=== PATIENT | female | born 1955 | race Caucasian/White ===

== ENCOUNTER 2018-08-31 14:39 | Emergency (ER) | payer MEDICARE, BC, SELFPAY ==
[2018-08-31 14:40] VITALS: BP 124/75; PULSE 80; RESP 19; TEMP 37.1; O2SAT 95; BMI 21.7
--- NOTE | 2018-08-31 15:26 | DI.RAD.S_ITS ---
PROCEDURE: XR CHEST 2V INDICATIONS: SHORTNESS OF BREATH AND COUGH. TECHNIQUE: 2 views of the chest were acquired. COMPARISON: [facility], , CHEST 2 VIEW, 04/18/2016, 11:55. FINDINGS: Surgical changes and devices: Thoracic spine neurostimulator lead noted. Cholecystectomy clips. Lungs and pleura: Lungs are clear. No pleural effusions or pneumothorax. Mediastinum: Mediastinal contours are normal. Heart size is normal. Bones and chest wall: No suspicious bony abnormalities. Soft tissues appear unremarkable. IMPRESSION: No acute cardiopulmonary disease process. Dictated by: Marce Gao MD, PhD on 08/31/2018 at 15:59 Approved by: Marce Gao MD, PhD on 08/31/2018 at 16:00
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
--- NOTE | 2018-08-31 16:35 | PC.NURSE ---
pt states, 8-9 days with cold sxs, the last 4 days with nasal congestions, chest pain with coughing only, admits still smoking. also with ear pain and body aches. reports, with spinal cord stimulator and takes oxycodone for pain, but it doesnt help head cold. dr english at [facility].
== END 2018-08-31 16:48 | disposition home or self-care (01) ==
PROVIDERS: Emergency Provider Emergency Medicine; PCP Family Medicine
DX: J06.9 Acute upper respiratory infection, unspecified (principal); R07.9 Chest pain, unspecified
CPT/HCPCS: 71046; 93005; 93010; 99282; 99284

== ENCOUNTER → 2019-08-17 11:40 | Outpatient (CLI) | payer MEDICARE, BC, SELFPAY ==
--- NOTE | 2019-08-17 11:48 | DI.RAD.S_ITS ---
PROCEDURE: XR CHEST 2V INDICATIONS: cough and fever; smoker TECHNIQUE: 2 views of the chest were acquired. COMPARISON: [facility], , CHEST 2 VIEW, 04/18/2016, 11:55. [facility], , XR CHEST 2V, 08/31/2018, 15:38. FINDINGS: Surgical changes and devices: Neuro stimulator catheter redemonstrated.. Lungs and pleura: Lungs are clear, aside from several small nodular opacities seen only on the frontal view projected over the right lung base, largest measuring roughly 1 cm.. No pleural effusions or pneumothorax. Mediastinum: Mediastinal contours are normal. Heart size is normal. Bones and chest wall: No suspicious bony abnormalities. Soft tissues appear unremarkable. IMPRESSION: 1. Several small nodular opacities projected over the right lung base seen only on the frontal view with the largest measuring up to 1.0 cm. When clinically feasible, recommend chest CT scan for further characterization. 2. No acute cardiopulmonary disease. Dictated by: Bart Bravo [facility] Interpreted: Colt Henson MD on 08/17/2019 at 12:01 Approved by: Colt Henson M.D. on 08/17/2019 at 15:55
[2019-08-17 13:56] LABS: Influenza A - CEPHEID Flu A NEGATIVE (NEGATIVE); Influenza B - CEPHEID Flu B NEGATIVE (NEGATIVE)
[2019-08-19 04:07] LABS: COVID19 Sendout Not Detected (Not Detected)
== END ==
PROVIDERS: PCP Family Medicine; Visit Provider Physician Assistant
DX: R05 Cough (principal); R50.9 Fever, unspecified
CPT/HCPCS: 71046; 87502; 87635

== ENCOUNTER → 2020-08-02 10:31 | Outpatient (CLI) | payer MEDICARE, BC, SELFPAY ==
[2020-08-02] MEDS: COVID-19 VACC, Ad26(JANSSEN)/PF 0.5 ML IM (10:44)
== END ==
PROVIDERS: PCP Family Medicine; Visit Provider Internal Medicine
DX: Z23 Encounter for immunization (principal)
CPT/HCPCS: 0031A; 91303

== ENCOUNTER 2021-03-26 16:16 | Emergency (ER) | payer MEDICARE, BC, SELFPAY ==
[2021-03-26 16:17] VITALS: BP 121/57; PULSE 101; RESP 18; TEMP 37.6; O2SAT 92
--- NOTE | 2021-03-26 16:37 | DI.RAD.S_ITS ---
PROCEDURE: XR ACUTE ABDOMEN SERIES INDICATIONS: bloating/constipation TECHNIQUE: One view chest and two views of the abdomen were acquired. COMPARISON: None. FINDINGS: Surgical changes and devices: A spinal stimulator device is seen with pulse generator in the left back and leads projecting over the spine. Surgical clips are seen in the right upper quadrant. Chest: Lungs are clear. Heart size is normal. No pleural effusions. No pneumoperitoneum. Abdomen: Scattered nonspecific nondilated air-filled loops of bowel are seen in the abdomen. No suspicious calcifications. Visualized solid organ contours appear normal. Bones: Dextroconvex curvature and multilevel degenerative changes are seen in the lumbar spine. IMPRESSION: Nonspecific nonobstructive bowel gas pattern in the abdomen. No pneumoperitoneum. No acute cardiopulmonary abnormality. If the symptoms persist, further evaluation may be obtained with a CT of the abdomen and pelvis. Dictated by: Kory Gray M.D. on 03/26/2021 at 16:54 Approved by: Kory Gray M.D. on 03/26/2021 at 16:58
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
[2021-03-26] MEDS: BISACODYL 10 MG SUPP PR (18:07)
[2021-03-26 19:40] VITALS: BP 130/66; PULSE 80; RESP 18; O2SAT 98
== END 2021-03-26 19:42 | disposition home or self-care (01) ==
PROVIDERS: Emergency Provider Emergency Medicine; PCP Family Medicine; Referring Provider Physician Assistant
DX: R10.84 Generalized abdominal pain (principal); K59.00 Constipation, unspecified
CPT/HCPCS: 74022; 99282; 99283

== ENCOUNTER 2021-08-30 14:41 | Emergency (ER) | payer MEDICARE, BC, SELFPAY ==
[2021-08-30 14:49] VITALS: BP 119/65; PULSE 89; RESP 22; TEMP 36.8; O2SAT 96; BMI 22.6
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
--- NOTE | 2021-08-30 16:00 | PC.NURSE ---
irrigated both ears with 50 cc warm sterile saline. small amount of earwax obtained but not much. pt tolerated well. did not improve c/o difficulty hearing
--- NOTE | 2021-08-30 16:03 | DI.CT.S_ITS ---
PROCEDURE: CT HEAD/BRAIN WO CON INDICATIONS: Possible hemotympanum, r/o head trauma TECHNIQUE: Noncontrast 4.5 mm thick angled axial sections acquired from the foramen magnum to the vertex, with coronal and sagittal reformats. For radiation dose reduction, the following was used: automated exposure control, adjustment of mA and/or kV according to patient size. COMPARISON: None. FINDINGS: Image quality: Excellent. CSF spaces: Basal cisterns are patent. No extra-axial fluid collections. The ventricles are symmetric in size and shape. Brain: No intracranial bleeds or masses. There is cerebral volume loss for age, with resultant ventricular and sulcal prominence. There are periventricular and deep white matter chronic small vessel ischemic changes. There is intracranial internal carotid artery atherosclerosis. Skull and face: Calvarium and visualized facial bones appear intact, without suspicious lesions. No abnormal fluid can be seen within the middle ear cavities. Sinuses: Visualized sinuses and mastoids are clear. IMPRESSION: No acute intracranial hemorrhage is seen. No acute intracranial process is seen. No findings of fluid can be seen within the middle ear cavities are within the mastoid air cells. Dictated by: Chi Carr M.D. on 08/30/2021 at 15:31 Approved by: Chi Carr M.D. on 08/30/2021 at 15:32
[2021-08-30 17:22] VITALS: BP 109/68; PULSE 68; RESP 16; O2SAT 98
== END 2021-08-30 17:29 | disposition home or self-care (01) ==
PROVIDERS: Emergency Provider Physician Assistant Medical; PCP Physician Assistant
DX: H92.02 Otalgia, left ear (principal); F17.200 Nicotine dependence, unspecified, uncomplicated
CPT/HCPCS: 70450; 99283; 99284

== ENCOUNTER → 2021-11-08 07:51 | Outpatient (CLI) | payer MEDICARE, BC, SELFPAY | PROVIDERS: PCP Physician Assistant; Visit Provider Physician Assistant | DX: N34.3 Urethral syndrome, unspecified (principal) | CPT/HCPCS: 87077; 87086; 87186 ==

== ENCOUNTER → 2021-12-05 10:05 | Outpatient (CLI) | payer MEDICARE, OTHER, SELFPAY ==
--- NOTE | 2021-12-05 10:11 | DI.CT.S_ITS ---
PROCEDURE: CT ABDOMEN PELVIS WO CON INDICATIONS: hematuria TECHNIQUE: Noncontrast 5 mm thick sections acquired from the diaphragms to the symphysis. 5 mm coronal and sagittal reformats were then performed. For radiation dose reduction, the following was used: automated exposure control, adjustment of mA and/or kV according to patient size. COMPARISON: None. FINDINGS: Image quality: Excellent. ABDOMEN: Lung bases: Lung bases are clear. Heart size is normal. Solid organs: Liver is normal in size. Gallbladder is surgically absent . Pancreas is normal in contours. Spleen is normal in size. No adrenal nodules. Kidneys are normal in size, without hydronephrosis or nephrolithiasis. Peritoneum and bowel: Unenhanced bowel loops demonstrate normal wall thickness and caliber. No free fluid or air. N appendix is normal in caliber but demonstrates calcific density within its lumen. Nodes and vessels: No retroperitoneal or mesenteric adenopathy by size criteria. Aorta and inferior vena cava are normal in caliber. Miscellaneous: No ventral hernias. PELVIS: Genitourinary: Urinary bladder is decompressed. Miscellaneous: No inguinal hernias or adenopathy. Bones: No suspicious bony lesions. No vertebral body compression fractures. Stimulator device within the subcutaneous fat of the left back posteriorly. IMPRESSION: 1. No evidence of urinary tract calcification, nor obstruction. 2. No evidence of appendicitis. However, appendicoliths are present which may predispose the patient to appendicitis. Dictated by: Silva Pal M.D. on 12/05/2021 at 11:41 Transcribed by: MARILOU on 12/05/2021 at 11:43 Approved by: Silva Pal M.D. on 12/05/2021 at 13:04
== END ==
PROVIDERS: PCP Physician Assistant; Referring Provider Urology; Visit Provider Urology
DX: R31.29 Other microscopic hematuria (principal); K38.9 Disease of appendix, unspecified; F41.9 Anxiety disorder, unspecified; Z87.442 Personal history of urinary calculi; Z98.890 Other specified postprocedural states; Z72.0 Tobacco use; Z80.52 Family history of malignant neoplasm of bladder
CPT/HCPCS: 51798; 74176; 81002; 99214

== ENCOUNTER → 2021-12-20 10:09 | Outpatient (CLI) | payer MEDICARE, OTHER, SELFPAY ==
[2021-12-20 10:45] LABS: COVID19 -Nasal RAPID Negative (Negative)
== END ==
PROVIDERS: PCP Physician Assistant; Visit Provider Urology
DX: Z20.822 Contact with and (suspected) exposure to COVID-19 (principal)
CPT/HCPCS: 87635

== ENCOUNTER 2021-12-20 13:16 | Day surgery (SDC) | payer MEDICARE, OTHER, SELFPAY ==
[2021-12-20] VITALS (8 sets, daily range): BP systolic 134–158; BP diastolic 72–87; PULSE 78–102; RESP 16–18; TEMP 35.7–36.9; O2SAT 94–96; BMI 23.3
--- NOTE | 2021-12-20 | DI.RAD.S_ITS ---
PROCEDURE: XR ABDOMEN 1V INDICATIONS: BILATERAL RETROGRADE TECHNIQUE: 13 intra-operative images acquired by the Urology service. COMPARISON: None. FINDINGS: Intra procedural fluoroscopy guidance provided for Dr. Drummond. Thirteen images obtained. IMPRESSION: Intraprocedural fluoroscopy was provided for guidance and anatomical localization. Please see the procedure report for further details. Dictated by: Kory Barraza M.D. on 12/25/2021 at 9:27 Approved by: Kory Barraza M.D. on 12/25/2021 at 9:45
[2021-12-20] MEDS: LACTATED RINGERS 1,000 ML 42 ML IV (13:51)
--- NOTE | 2021-12-20 14:16 | PM.PREOP ---
Pre-operative Note COVID-19 COVID-19 status: Negative Result date/Date tested (Pos, Neg/Pending): 12/20/21 Criteria for continued procedure: Non-surgical alternatives not available or appropriate per current SOC Interval Note History & Physical reviewed/Exam performed by Physician: Yes Changes to H&P: No
--- NOTE | 2021-12-20 14:18 | SUR.PREOP ---
declined active warming, doesn't want any blankets.
[2021-12-20] MEDS: CEFAZOLIN 2 GM/20 ML SYRINGE IV (15:49)
[2021-12-20] MEDS: IOPAMIDOL 50 ML VIAL 8 ML INTRAURETH (16:00)
--- NOTE | 2021-12-20 16:04 | SUR.OPER ---
Lithotomy on padded OR bed, head on pillow, arms secured on padded arm boards at <90 degrees abduction. Legs secured in padded yellow fins stirrups.
--- NOTE | 2021-12-20 16:12 | PM.OP.1 ---
Procedure & Clinicians Procedure: Cystoscopy with bilateral retrograde pyelogram Same procedure as scheduled: Yes Indications: This 58-year-old female presented with microscopic hematuria. Family history of bladder cancer and cancer anxiety. She had a CT scan which showed no significant genitourinary abnormality. She presents this time for cystoscopy with bilateral retrograde pyelogram to complete her hematuria workup given and intravenous contrast allergy. Surgeon: Devyn Drummond Click Yes if Unassisted: Yes Anesthesia Type: General Operative Notes Findings: External genitalia are normal with some mild atrophic vaginitis. The urethral meatus is normal and she has a grade 1 approaching grade 2 anterior prolapse. Urethra is otherwise normal along its length. Ureteral orifices in normal position with clear efflux. The bladder mucosa is normal without sign of malignancy. There were no stones or other abnormality noted within the bladder. The collecting system right left was in a were normal. The ureters were normal longer course without filling defect the collecting system was also normal on the right and left. There were no stones, no filling defects no other abnormalities. Each collecting system drained quickly and without abnormality also. Closure Type: not applicable Specimen(s): none sent Estimated Blood Loss (mL): 0 Blood products transfused: none Procedure in detail: Procedure in detail: After informed consent was obtained, the patient was identified and brought to the operating room where she is placed in supine position on the table. Patient then had anesthesia induced and maintained. With an adequate level of anesthesi the patient was transitioned to the lithotomy position. Patient was then prepped, draped, repaired for transurethral procedure. After prepping draping assuring adequate level anesthesia a 21 Maur[place]ian cystoscope was passed through the urethra and the bladder. Cystoscopy was then performed with the 30 and 70 degree lens. The right ureteral orifice was identified 5 Mauritanian cone-tip catheter was impacted in the orifice. The collecting system was filled with contrast and serial images were taken from the bladder to the collecting system. Attention was then turned to the left side where the cone-tipped catheter was impacted in the left ureteral orifice and collecting system filled and images obtained. The collecting system right and left was then observed for drainage and it was efficient quick and without abnormality. With these findings in hand the bladder was drained the scope was removed the patient was awakened taken to postanesthesia care unit having tolerated the procedure well patient to follow-up in my office in approximately 10-14 days. There were no complications. Complications: none Post-operative Condition: stable Disposition: PACU Plan for aftercare: The patient is to be discharged home with follow-up my office in approximately 10-14 days.
== END 2021-12-20 16:58 | disposition home or self-care (01) ==
PROVIDERS: PCP Physician Assistant; Referring Provider Urology; Visit Provider Urology
PROC: (CPT 52351; principal; 2021-12-20 14:45)
DX: R31.29 Other microscopic hematuria (principal); F17.210 Nicotine dependence, cigarettes, uncomplicated; Z80.52 Family history of malignant neoplasm of bladder; Z20.822 Contact with and (suspected) exposure to COVID-19; N95.2 Postmenopausal atrophic vaginitis; N81.0 Urethrocele
CPT/HCPCS: 52351; 74018; 76000; 87635; C9803; J0690; J1100; J2250; J2405; J2704; J3010

== ENCOUNTER → 2022-03-25 15:43 | Outpatient (CLI) | payer MEDICARE, OTHER, SELFPAY ==
[2022-03-25 18:21] LABS: COVID19 -Nasal RAPID Negative (Negative)
== END ==
PROVIDERS: PCP Physician Assistant; Visit Provider Surgery
DX: Z20.822 Contact with and (suspected) exposure to COVID-19 (principal); Z01.812 Encounter for preprocedural laboratory examination
CPT/HCPCS: 87635; C9803

== ENCOUNTER 2022-03-26 10:51 | Day surgery (SDC) | payer MEDICARE, OTHER, SELFPAY ==
[2022-03-21 10:01] VITALS: BMI 23.3
[2022-03-26] VITALS (12 sets, daily range): BP systolic 84–129; BP diastolic 45–74; PULSE 83–104; RESP 11–22; TEMP 36.1–36.9; O2SAT 91–95; BMI 23.3
--- NOTE | 2022-03-26 | PATH_ITS ---
[facility] Accession Number: [id number] . 01 Material submitted: . appendix - APPENDIX . 01 Diagnosis: Appendix, Appendectomy: Mild chronic appendicitis. Negative for dysplasia and malignancy. MRV 03/31/2022 1438 Local . 01 Electronically signed: . Celestina Mclain MD, Pathologist NPI- [id number] . 01 Gross description: . The specimen is received in formalin labeled with the patient's name and appendix, and consists of a 7.6 x 0.8 cm vermiform appendix with quarles smooth serosa with no perforations grossly identified and a moderate amount of mesoappendix extending out to 2.8 cm. The surgical margin is received closed with alisha, is inked blue, and serial sectioning reveals a brown firm structure consistent with fecalith measuring 0.8 cm in greatest dimension obstructing the lumen. The lumen ranges in diameter from 0.5 to 0.7 cm, and the meng average 0.1 cm thick. No lesions are identified. Oriental [employer]airer sections to include one-half of the bisected distal tip, surgical margin, and promotions representative cross-sections are submitted in cassette A1. ([id number]) /MRV 03/28/2022 1530 Local . 01 Pathologist provided ICD-10: K38.9 . 01 CPT . 741488 Specimen Comment: A courtesy copy of this report has been sent to [phone] Performed at: 01 [facility] [address] [place] [address] [id number] MD Yusuf Morataya MD Phone: [phone]
--- NOTE | 2022-03-26 11:06 | SUR.PREOP ---
Called in OR #2 Pt requesting Albuterol. Has not taken today. States has COPD cough today.
[2022-03-26] MEDS: ALBUTEROL 2.5 MG/3 ML NEB (ADULT) INH (11:19)
[2022-03-26] MEDS: LACTATED RINGERS 1,000 ML 100 ML IV (11:19)
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
--- NOTE | 2022-03-26 11:40 | PM.OP.1 ---
Operative Date/Time/Diagnoses Date of procedure: 03/26/22 Time of procedure: 11:40 Pre-op diagnosis: Appendiceal stones Post-op diagnosis: same Procedure & Clinicians Procedure: Laparoscopic appendectomy Same procedure as scheduled: Yes Indications: 66-year-old woman was found to have incidental appendiceal stones here for an elective prophylactic appendectomy as she is concerned about developing appendicitis during her remote travels. Surgeon: Nelson Vu Click Yes if Unassisted: Yes Anesthesia Type: General Operative Notes Findings: appendix without acute appendicitis Specimen(s): other (Appendix) Estimated Blood Loss (mL): 20 Procedure in detail: Patient was brought to the operating room placed supine on the table. Bilateral lower extremity compression devices were applied. Anesthesia was induced and they intubated with an endotracheal tube. They received 3.375 g of Zosyn prior to skin incision. The left arm was tucked and appropriately padded. They were prepped and draped in sterile fashion. Time-out was performed. An infraumbilical incision was made the umbilical stalk was grasped and elevated and incision was made and the abdomen was entered atraumatically. A 12 mm balloon trocar was then placed through the incision and pneumoperitoneum of 14 mm Hg was established. The scope was then inserted and the abdomen inspected, there was no evidence of injury upon entry. Two 5 mm ports were placed under direct visualization, one in the left lower quadrant and second in the lower midline. A thorough laparoscopic evaluation was performed inspecting all four quadrants. The patient was then tilted right side up. The small bowel was then swept to the upper aspect of the abdomen. The tenie were followed to the base of the cecum where the appendix was identified. The appendix was normal in its appearance The appendix was grasped and a window within the mesentery was made at the base of the appendix using the [place] dissector with care to avoid injuring the cecum. The mesoappendix was then divided using the endo-stapler with a staple length of 2.5 mm-white load. The mesenteric staple line was inspected for hemostasis. The appendix was then amputated flush at the cecum using the endo-stapler blue load. The specimen was retrieved using a endoscopic retrieval bad through the 10 mm infra-umbilical port. The 5 mm ports were then removed under direct visualization. The umbilical fascial incision was closed with 0 Vicryl in a figure-eight fashion. The skin wounds were irrigated and closed with 4-0 Monocryl followed by the application of Dermabond. Sponge instrument count at the end of the operation was correct. The patient tolerated procedure well was extubated and transferred to the postoperative care unit in stable condition. Complications: none Post-operative Condition: stable Disposition: same day surgery
[2022-03-26] MEDS: PIPERACILLIN/TAZO 4.5 GM in SODIUM CHLORIDE 0.9% 100 ML IV (12:00)
--- NOTE | 2022-03-26 12:17 | SUR.OPER ---
Supine on padded OR bed, head on pillow, right arm secured on padded arm boards at <90 degrees abduction, left arm padded with gel pad and tucked at side, legs uncrossed, safety belt at thigh, tape over blanket over lower legs. Gel pad under bilateral heels. Patient stated haing oral surgery 2 weeks ago with screw implants and sutures in gum line. Patient voided at 1145 in pre-op area prior to entering OR.
[2022-03-26] MEDS: BUPIVACAINE 0.25% (PF) VIAL 30 ML INJ (12:32)
[2022-03-26] MEDS: LORazepam 2 MG/ML INJ 0.25 MG IV (12:53)
[2022-03-26] MEDS: OXYCODONE IR 5 MG TABLET 10 MG PO (12:56)
--- NOTE | 2022-03-26 12:56 | SUR.PHASEI ---
Notified Dr Abreu of patient having intense itching to hands in PACU.
[2022-03-26] MEDS: hydrOXYzine 50 MG/ML INJ 25 MG IM (13:00)
== END 2022-03-26 14:25 | disposition home or self-care (01) ==
PROVIDERS: PCP Physician Assistant; Referring Provider Surgery; Visit Provider Surgery
PROC: 0DTJ4ZZ Resection of Appendix, Percutaneous Endoscopic Approach (ICD-10-PCS; CPT 44970; principal; 2022-03-26 12:15)
DX: K36 Other appendicitis (principal); K38.1 Appendicular concretions; J44.9 Chronic obstructive pulmonary disease, unspecified; F17.210 Nicotine dependence, cigarettes, uncomplicated
CPT/HCPCS: 44970; 82962; J1100; J1885; J2060; J2250; J2405; J2543; J2704; J3010; J3410; J7613

== ENCOUNTER → 2022-05-07 13:32 | Outpatient (CLI) | payer MEDICARE, OTHER, SELFPAY ==
[2022-05-07 15:46] LABS: Add Manual Diff / Slide Review NO; Basophils Absolute Auto 0 /uL (0-100); Basophils Percent Auto 0.6 % (0-2); Eosinophils Absolute Auto 0 /uL (0-450); Eosinophils Percent Auto 0.6 % (2-4); Hematocrit 43.6 % (36-46); Hemoglobin 15.1 g/dL (12.0-16.0); Lymphocytes Absolute Auto 1900 /uL (1100-4500); Lymphocytes Percent Auto 24.1 % (25-40); Mean Corpuscular HGB Conc 34.5 % (30-36); Mean Corpuscular Hemoglobin 34.1 PG (26-34); Mean Corpuscular Volume 98.6 fL (80-100); Monocytes Absolute Auto 500 /uL (0-900); Monocytes Percent Auto 6.3 % (3-14); Neutrophils Absolute Auto 5500 /uL (1500-7000); Neutrophils Percent Auto 68.4 % (50-75); Platelet Count 277 X10^3/uL (150-400); Red Blood Cell Count 4.42 X10^6/uL (4.0-5.2); White Blood Cell Count 8.1 X10^3/uL (4.5-11.0)
[2022-05-07 16:10] LABS: Alanine Aminotransferase 15 IU/L (<35); Albumin 4.3 g/dL (3.5-5.0); Albumin Globulin Ratio 1.8 (1.0-2.8); Alkaline Phosphatase 68 U/L (38-126); Aspartate Aminotransferase 25 IU/L (14-36); BUN Creatinine Ratio 6.5 (6-22); Bilirubin Total 0.4 mg/dL (0.2-1.3); Blood Urea Nitrogen 6 mg/dL (7-17); Calcium 9.9 mg/dL (8.4-10.2); Carbon Dioxide 25 mmol/L (22-32); Chloride 104 mmol/L (98-107); Estimated Glomerular Filt Rate > 60 mL/min (>60); Globulin 2.4 g/dL (1.7-4.1); Glucose 98 mg/dL (80-110); HEMOLYSIS < 15 (0-50); Potassium 3.6 mmol/L (3.4-5.1); Sodium 141 mmol/L (137-145); Total Protein 6.7 g/dL (6.3-8.2)
[2022-05-07 16:39] LABS: TSH w/ Reflex to FT4 1.71 uIU/mL (0.47-4.68)
== END ==
PROVIDERS: PCP Physician Assistant; Referring Provider Family Medicine; Visit Provider Family Medicine
DX: R19.7 Diarrhea, unspecified (principal)
CPT/HCPCS: 36415; 80053; 84443; 85025

== ENCOUNTER → 2022-05-09 14:51 | Outpatient (CLI) | payer MEDICARE, OTHER, SELFPAY ==
[2022-05-09 17:33] LABS: Clostridium Difficile Tox PCR Negative for C. diff (Negative)
[2022-05-12 18:14] LABS: Calprotectin, Stool 391 ug/g (0-120)
== END ==
PROVIDERS: PCP Physician Assistant; Referring Provider Family Medicine; Visit Provider Family Medicine
DX: R19.7 Diarrhea, unspecified (principal)
CPT/HCPCS: 83993; 87045; 87177; 87493; 87899

== ENCOUNTER → 2022-09-22 14:35 | Outpatient (CLI) | payer MEDICARE, OTHER, SELFPAY ==
[2022-09-22 15:47] LABS: Clostridium Difficile Tox PCR Negative for C. diff (Negative)
== END ==
PROVIDERS: PCP Family Medicine; Referring Provider Family Medicine; Visit Provider Family Medicine
DX: R19.7 Diarrhea, unspecified (principal)
CPT/HCPCS: 87045; 87177; 87493; 87899

== ENCOUNTER 2022-09-29 10:00 | Inpatient (IN) | payer MEDICARE, OTHER, SELFPAY ==
[2022-09-29] VITALS (29 sets, daily range): BP systolic 95–144; BP diastolic 50–85; PULSE 80–104; RESP 11–20; TEMP 36–36.8; O2SAT 90–99; BMI 26.4; BMI 21.7
--- NOTE | 2022-09-29 | DI.RAD.S_ITS ---
PROCEDURE: XR PELVIS 1-2V INDICATIONS: INTER OP TECHNIQUE: Intra-operative view of the pelvis and hip acquired. COMPARISON: None. FINDINGS: Bones: Intraoperative devices prior to placement of arthroplasty prostheses are in expected positions. No fractures or suspicious bony lesions. Soft tissues: Overlying surgical retractors are present, along with other intraoperative changes. IMPRESSION: Intraoperative imaging obtained during right hip arthroplasty. Dictated by: Silva Pal M.D. on 09/29/2022 at 17:45 Approved by: Silva Pal M.D. on 09/29/2022 at 17:45
--- NOTE | 2022-09-29 10:06 | DI.RAD.S_ITS ---
PROCEDURE: XR HIP W PEL IF DONE RT 2V INDICATIONS: fall pain TECHNIQUE: AP pelvis with lateral view(s) of the right hip(s). COMPARISON: None. FINDINGS: Bones: There is a mildly displaced/impacted right femoral neck fracture. Pelvic ring appears intact. No suspicious bony lesions. Soft tissues: The visualized bowel gas pattern is normal. No suspicious soft tissue calcifications. Partially visualized stimulator is noted overlying the left lower quadrant. IMPRESSION: Mildly displaced/impacted right femoral neck fracture. Dictated by: Latanya Snider M.D. on 09/29/2022 at 10:45 Approved by: Latanya Snider M.D. on 09/29/2022 at 10:46
--- NOTE | 2022-09-29 10:06 | DI.RAD.S_ITS ---
PROCEDURE: XR CHEST 1V INDICATIONS: fall pain TECHNIQUE: One view of the chest was acquired. COMPARISON: [facility], CR, XR CHEST 2V, 08/31/2018, 15:38. FINDINGS: Surgical changes and devices: Partially visualized stimulator leads are noted overlying the midthoracic spine. Lungs and pleura: Lungs are clear. No pleural effusions or pneumothorax. Mediastinum: Mediastinal contours appear normal. Heart size is normal. Bones and chest wall: No suspicious bony lesions. Overlying soft tissues appear unremarkable. IMPRESSION: No acute pulmonary process. Dictated by: Latanya Snider M.D. on 09/29/2022 at 10:46 Approved by: Latanya Snider M.D. on 09/29/2022 at 10:46
[2022-09-29] MEDS: MORPHINE 4 MG/ML INJ IV (10:30)
--- NOTE | 2022-09-29 10:41 | PC.NURSE ---
Patient tearful and yelling in pain, Dr. Cho aware. Pt received Morphine, educated pt on onset of medication. Pt moving in bed and unable to find comfortable position, unable to verbalize ideal comfortable position. Attempted to offload pressure of right hip, pt declines any position improving. Discussed with Dr. Cho and Bela BELLA. Updated pt on plan to reposition further once Morphine relief is felt. Pt requests Fentanyl for further relief, states Fentanyl only worked for 20 minutes. Educated pt on recent Morphine administration and plan of care to relieve pain, discussed realistic expectations, pt states she is attempting to reach Primary Care Provider to discuss pain. Dr. Cho aware.
[2022-09-29] MEDS: LORazepam 2 MG/ML INJ 0.5 MG IV ×2 (10:52→14:55)
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
[2022-09-29] MEDS: SODIUM CHLORIDE 0.9% 1,000 ML 1000 ML IV ×2 (10:58→12:40)
[2022-09-29 11:12] LABS: Add Manual Diff / Slide Review NO; Basophils Absolute Auto 100 /uL (0-100); Basophils Percent Auto 0.8 % (0-2); Eosinophils Absolute Auto 100 /uL (0-450); Eosinophils Percent Auto 0.7 % (2-4); Hemoglobin 13.1 g/dL (12.0-16.0); Lymphocytes Absolute Auto 2100 /uL (1100-4500); Lymphocytes Percent Auto 27.2 % (25-40); Mean Corpuscular HGB Conc 34.4 % (30-36); Mean Corpuscular Hemoglobin 34.4 PG (26-34); Monocytes Absolute Auto 400 /uL (0-900); Monocytes Percent Auto 5.4 % (3-14); Neutrophils Absolute Auto 5100 /uL (1500-7000); Neutrophils Percent Auto 65.9 % (50-75); Platelet Count 227 X10^3/uL (150-400); Red Cell Distribution Width 14.3 % (11.6-14.8); White Blood Cell Count 7.7 X10^3/uL (4.5-11.0)
[2022-09-29 11:26] LABS: Alanine Aminotransferase 17 IU/L (<35); Albumin 3.6 g/dL (3.5-5.0); Albumin Globulin Ratio 1.6 (1.0-2.8); Alkaline Phosphatase 62 U/L (38-126); Aspartate Aminotransferase 25 IU/L (14-36); BUN Creatinine Ratio 8.6 (6-22); Bilirubin Total 0.3 mg/dL (0.2-1.3); Blood Urea Nitrogen 6 mg/dL (7-17); Calcium 8.4 mg/dL (8.4-10.2); Carbon Dioxide 26 mmol/L (22-32); Chloride 106 mmol/L (98-107); Estimated Glomerular Filt Rate > 60 mL/min (>60); Globulin 2.3 g/dL (1.7-4.1); Glucose 85 mg/dL (80-110); HEMOLYSIS < 15 (0-50); Potassium 3.5 mmol/L (3.4-5.1); Sodium 138 mmol/L (137-145); Total Protein 5.9 g/dL (6.3-8.2)
[2022-09-29 11:29] LABS: COVID19 -Nasal RAPID Negative (Negative)
[2022-09-29] MEDS: HYDROMORPHONE 0.5 MG INJ IV ×3 (12:02→15:00)
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
[2022-09-29] MEDS: MORPHINE 2 MG/ML INJ IV ×2 (12:37→13:05)
--- NOTE | 2022-09-29 13:44 | PC.NURSE ---
Patient in significant pain while in Emergency Room, unable to manage pain to level pt was comfortable with to place urinary catheter. Report given to Kary BELLA and aware.
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
[2022-09-29] MEDS: CEFAZOLIN 2 GM/100 ML PREMIX 100 ML IV (16:45)
[2022-09-29] MEDS: TRANEXAMIC ACID 1,000 MG VIAL 2000 MG INJ ×2 (16:55→18:20)
--- NOTE | 2022-09-29 17:07 | SUR.OPER ---
Lateral on a weston bag, head on pillow, gel axillary roll in place, bottom leg bent with gel pad under knee to foot and secured with tape. Upper arm supported by pillows and secured over bottom arm to padded arm board.
[2022-09-29] MEDS: LACTATED RINGERS 1,000 ML 42 ML IV (17:13)
[2022-09-29] MEDS: BUPIVACAINE 0.25% (PF) 60 ML, EPINEPHrine 0.3 MG INJ ×2 (17:20→17:40)
--- NOTE | 2022-09-29 18:09 | P.OP_ITS ---
Operative Date/Time/Diagnoses Date of procedure: 09/29/22 Time of procedure: 17:00 Pre-op diagnosis: Right femoral neck fracture, right osteoporotic hip fracture Post-op diagnosis: same Procedure & Clinicians Procedure: No prosthetic fixation, partial hip replacement right femoral neck fracture. CPT code 27709 Same procedure as scheduled: Yes Indications: Patient is a 67-year-old female sustained a ground level fall resulting in a displaced femoral neck fracture. Patient was indicated for endoprosthetic fixation to reduce the risks associated with prolonged immobility. Allow early immediate weight-bearing. The risks and benefits of the procedure have been discussed with the patient and her and they have been given the opp ortunity to ask questions. The risks of surgery include but are not limited to infection, fracture, leg length discrepancy, persistence of pain, damage to nerves and blood vessels, posttraumatic arthritis, DVT, PE, cardiopulmonary complications and . The patient expressed a thorough understanding of the risks and benefits of surgery and has elected to proceed. Consent was signed. During the operation, the services of a physician surgical supervisor were medically indicated and necessary to provide the exposure of the operative site for the surgical procedure and to maintain the limb in a proper position to carry out the operation safely and efficiently. Without a qualified digital sales assistant being present this would extended the operative procedure and made the procedure technically more difficult to perform. Surgeon: Ebony Finn Window Treatment Installer: Tacos Bass Anesthesia Type: General and Local Operative Notes Findings: Displaced femoral neck fracture, right Closure Type: primary Specimen(s): none sent Prosthetic devices, grafts, tissues, transplants, or devices: [employer]iola [employer] Synergy size 11 cemented stem Small restrictor 9 centralizer 49 mm tandem unipolar head +4 neck standard Estimated Blood Loss (mL): 200 Blood products transfused: none Tourniquet time (min): 0 Procedure in detail: Hemiarthroplasty for femoral neck fracture CPT code 41775. Patient was seen in the preoperative area the site of surgery was marked and informed consent confirmed. The patient was brought back to the operating room by the anesthesia team. Patient was positioned supine on the operative table. General anesthetic was administered. Patient was then moved into the lateral position. The hip weekend caregiver positioner pads were then placed. A well-padded axillary roll was placed and the arms were appropriately positioned. The affe cted lower extremity was prepped and draped from the ankle to the iliac crest with ChloraPrep in the standard fashion sterile drapes were placed. Formal time-out procedure was performed confirming the patient's side and site of surgery, presence of informed consent, administration of appropriate preoperative antibiotics. Hip was approached through a standard posterior approach. Dissection was carried down through the skin and subcutaneous tissues sharply through the skin and then with the Bovie through the subcutaneous tissues. The fascia ashli was exposed and opened. Fascia was opened using the Bovie and the gluteus chemo was spread with finger retraction. The Charnley retractor was placed. The inflamed bursa was resected. The piriformis was then identified. A Cobra retractor was placed under the gluteus medius to help expose the external rotators. The piriformis and short external rotators were tagged with a 2 Ethibond and divided of the trochanter. These were then retracted posteriorly to protect sciatic nerve. The femur was then flexed and internally rotated to present the femoral neck and the fracture. A corkscrew and a Oliveira were used to remove the femoral head from the acetabulum. This was measured to fit a 49 mm head. Next the femur was presented. A clean-up neck cut was made in a minimal fashion. The trial head size was trialed in the acetabulum. Attention was then turned to the femur. The canal was opened with a box cutting osteotome. This followed by the canal finer and a lateralizing Reamer. The tapered reamers were then used up to a size 11 mm. Then broaching was sequentially done up to a size 11 mm. Trial components were placed. The patient was stable in the position of sleep, squatting and could be put through a range of motion with 70? of internal rotation without dislocation. This was felt to be appropriate. An intraop a AP pelvis x-ray was obtained to assess component position. Final components were then selected. The final stem was a size 11. Femoral canal was prepared . The distal small restrictor was placed approximately 1 cm distal to the end of the planned implant. The bone was meticulously cleaned with pulse lavage. Canal was then packed with epi soaked gauze. Two packages of cement were mixed and carefully pressurized into the femoral canal. The femoral component was then placed without difficulty. This was held in place until the cement hardened. The repeat trial reduction showed good range of motion and stability. The final head and neck were then carefully placed. + four neck was selected. The wound was irrigated. The capsule and muscular flap was repaired with the 2. Ethibond. Next the short external rotators were repaired to the greater trochanter through drill holes in the greater trochanter using the 2.5 drill and a Hewson suture Passer. Reinforced with 2. FiberWire. These were tied with the leg in abduction. The wound was then irrigated again. The fascia ashli was closed with 0 Vicryl and the subcutaneous layer was closed with 2-0 Vicryl and the skin with alisha. An Aquacel dressing was placed. The drapes removed and the patient was taken to the recovery room in good condition. There no immediate complications from this procedure. All counts were correct. Postoperative AP pelvis x-ray was obtained in the PACU showed appropriate alignment of the cemented hip hemiarthroplasty with no evidence of fracture. Complications: none Post-operative Condition: stable Disposition: PACU Plan for aftercare: Weightbear as tolerated. Posterior hip precautions x6 weeks. Regular pillow between the legs in bed, as a reminder Pain control Lovenox DVT prophylaxis x4 weeks Follow-up in Orthopedic Clinic with [facility] in 2 weeks for x-rays and staple removal. Aquacel dressing is waterproof may shower. Calcium and vitamin-D. Will need outpatient osteoporotic workup DEXA scan if she is not had 1 in 2 years. We will check her vitamin-D level. Patient is encouraged to stop smoking
--- NOTE | 2022-09-29 18:28 | DI.RAD.S_ITS ---
PROCEDURE: XR PELVIS 1-2V INDICATIONS: POST OP UNIPOLAR TECHNIQUE: 1 view(s) of the pelvis acquired. COMPARISON: [facility], CR, XR PELVIS 1-2V, 09/29/2022, 17:19. FINDINGS: Bones: Right hip arthroplasty. No fractures or dislocations. No suspicious bony lesions. Soft tissues: Visualized bowel gas pattern is normal. No suspicious soft tissue calcifications. IMPRESSION: Expected appearance of right hip arthroplasty. Dictated by: Silva Pal M.D. on 09/29/2022 at 19:01 Approved by: Silva Pal M.D. on 09/29/2022 at 19:01
[2022-09-29] MEDS: HYDROMORPHONE 2 MG INJ IV (19:03)
[2022-09-29] MEDS: hydrOXYzine 50 MG/ML INJ IM (19:04)
[2022-09-29] MEDS: LACTATED RINGERS 1,000 ML 100 ML IV (21:17)
[2022-09-30] VITALS: BP 105/53; PULSE 76; RESP 16; TEMP 36.6; O2SAT 98
[2022-09-30] MEDS: CEFAZOLIN 2 GM/100 ML PREMIX 100 ML IV ×2 (00:46→09:26)
[2022-09-30] MEDS: ACETAMINOPHEN 325 MG TABLET 650 MG PO ×4 (02:00→20:40)
[2022-09-30] MEDS: OXYCODONE ER 20 MG TAB PO ×3 (02:00→20:40)
[2022-09-30] MEDS: HYDROMORPHONE 0.5 MG INJ IV ×2 (02:21→14:20)
[2022-09-30 03:00] VITALS: BP 114/59; PULSE 81; RESP 15; TEMP 36.3; O2SAT 97
[2022-09-30 05:34] LABS: Hematocrit 33.7 % (36-46); Hemoglobin 11.5 g/dL (12.0-16.0)
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
[2022-09-30] MEDS: PANTOPRAZOLE DR 40 MG TABLET PO (08:28)
[2022-09-30 08:31] VITALS: BP 133/65; PULSE 102; RESP 17; TEMP 36.6; O2SAT 98
[2022-09-30] MEDS: CALCIUM CARBONATE 500 MG TAB PO ×2 (09:20→20:35)
[2022-09-30] MEDS: ATORVASTATIN 20 MG TABLET 10 MG PO (09:20)
[2022-09-30] MEDS: ENOXAPARIN 40 MG/0.4 ML SYRINGE SUBCUT (09:21)
[2022-09-30] MEDS: DULOXETINE 30 MG CAPSULE PO ×2 (09:21→20:34)
[2022-09-30] MEDS: CHOLESTYRAMINE/ASPARTAME 4 GM PACK 2 GM PO ×2 (09:21→20:33)
[2022-09-30] MEDS: CHOLECALCIFEROL (VITAMIN D3) 1,000 UNIT TABLET 2000 UNIT PO (09:23)
[2022-09-30] MEDS: BENZONATATE 100 MG CAPSULE PO ×2 (09:24→15:15)
[2022-09-30] MEDS: DOCUSATE 100 MG CAPSULE PO ×2 (09:24→20:34)
[2022-09-30] MEDS: GABAPENTIN 600 MG TABLET 1800 MG PO ×2 (09:25→20:34)
[2022-09-30] MEDS: VENLAFAXINE ER 75 MG CAP 225 MG PO (09:36)
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
[2022-09-30] MEDS: KETOROLAC 30 MG/ML VIAL 15 MG IV ×2 (11:29→18:30)
[2022-09-30] MEDS: OXYCODONE IR 10 MG TABLET PO ×3 (11:29→20:34)
--- NOTE | 2022-09-30 11:49 | PC.NURSE ---
Pt alert, anxious, attentive at bedside. Pt post op right hip. Initial pain issues, and increasing anxious. multiple attempts at cold and hot compresses , pain meds. Pt repositioned several times. Pt at rest and slepping. Up with PT to chair. states she is doing much better.
[2022-09-30] MEDS: NICOTINE 14 PATCH 14 MG TOP (12:57)
--- NOTE | 2022-09-30 13:45 | CM.DANOTE ---
Initial DCP Assessment Note Pt is a 67 yo female, resident of [place], now POD#1 from hip repair by Dr Aakash MORRIS at home w/ subsequent hip fx PCP: Sarai Arellano Payer: [employer]IL[employer] Met w/patient and her daughter June, introduced self and role. Patient tearful throughout this visit and reviews the intense pain she experienced after her fall and before surgical repair yesterday Patient and spouse live upstairs in their home and daughter June lives with her 13 yo downstairs Patient explains she lives with chronic pain and has a spinal cord stimulator and fibromyalgia. PMH includes anxiety and PTSD Reviewed ideas for DCP and patient and family have decided patient will return home upon discharge (Daughter not currently working) dtr requests a referral to home health services. agency options reviewed and [facility] and order completed; MIAN Banks, has initiated this referral to [facility] Plan: Discharge home w/spouse and daughter anticipated w/ [facility] RN/PT/OT YASMEEN Galvan Discharge Planning/Care Management CM Discharge Assessment Start: 09/30/22 13:34 Freq: Status: Active Protocol: Document 09/30/22 13:34 LORENZO (Rec: 09/30/22 13:44 [id number]) Discharge Planning Assessment Assigned Cupola Tapper Helper YASMEEN Pittman DPOA/Assigned Designee Name Jhonny Urrutia, spouse Contact Information [phone] Advance Directives? No History Provided By Patient,Family Member,Medical Record Prior Living Arrangements House Household Members spouse,family,children Type of transporation used prior to Relies on Others admit Independent with ADL's No: Poor activity tolerance at baseline Is patient alert and oriented? Yes Needs Assistance With Meal Prep,Managing Medications ,Home Chores / Shopping Patient/Family Preference Home with Home Health Barriers to Discharge No Comment Patient plans to return home w /spouse and daughter June to assist. Request [facility] home health Discharge Plan Home with Home Health Transportation Arrangement Family Referrals Initiated Home Health Medicare Choice List Provided Yes Medicare choice list reviewed on patient,family electronic tablet with SNF/ Preference [facility] Comment MIAN Banks, kindly agreed to contact [facility] for this referral
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
--- NOTE | 2022-09-30 15:38 | PT.IPTN ---
Current Diagnoses Age-related osteoporosis with current pathological fracture, unspecified femur, initial encounter for fracture (09/29/22) Fracture of unspecified part of neck of unspecified femur, initial encounter for closed fracture (09/29/22) Surgery Performed Operation Date: 09/29/22 16:15 Actual Procedures p Right Hip Evin Arthroplasty(Right) - Ebony Finn MD Physical Therapy Treatment Note M2 PT-IP Current Condition Start: 09/30/22 13:19 Freq: NEEDED Status: Active Protocol: Document 09/30/22 11:03 AB (Rec: 09/30/22 13:35 AB [id number]) Physical Therapy Current Condition Current Condition Evaluation Date 09/30/22 Treatment Diagnosis s/p falls; R femoral neck fx s /p hemiarthroplasty; difficulty in walking Onset Date 09/29/22 M3 PT-IP Subjective Start: 09/30/22 13:19 Freq: NEEDED Status: Active Protocol: Document 09/30/22 15:57 TS (Rec: 09/30/22 16:23 TS [id number]) Subjective Physical Therapy Visit Type Type Treatment Note Visit Start Time 15:38 Visit Stop Time 15:56 Total Visit Minutes 18 Notes Spouse in room, very supportive. Number of SUPERVISOR LEAD BURNING Visits 1 Physical Therapy Visit Comments Patient Comments Pt found resting in bed, c/o pain 8/10 in RLE, agreeable to PT. Therapy Pain Assessment Pain When Pain Assessed At Rest Pain Present Pain Present Pain Reported Location Right Hip Intensity 8 Scale Used Numeric (0 - 10) Pain Management Techniques Apply Cold,Distraction, Modification of Treatment,Re- positioning,Timing of Activity with Medications M4 PT-IP Mobility and Gait Start: 09/30/22 13:19 Freq: NEEDED Status: Active Protocol: Document 09/30/22 15:57 TS (Rec: 09/30/22 16:23 TS [id number]) PT-Bed Mobility Assessment Supine to Sit Supine to Sit Maximum Assistance,1 Person Assistance,Head of Bed Elevated Scooting Scooting to Edge of Bed Contact Guard Assistance PT-Transfer Assessment Sit to and From Stand Sit to and from Stand Moderate Assistance,1 Person Assistance,Use of Upper Extremities Equipment Transfer Assistive Device Gait Belt,Front Wheeled Walker Orthotic/Prosthetic Devices or Brace: No Transfers Transfer Destination Bedside Commode Transfer Technique Stand Step Pivot Transfer Ability Level of Assist Minimal Assistance,1 Person Assistance,Use of Upper Extremities Comments Mobility Comments Pt found resting in bed, agreeable to PT session. Pt recalled 0/3 precautions, spouse recalled 3/3. Supine to sit MaxA x1 for uprighting trunk and RLE assist with HOB elevated 40, BUE support on bed. Scooted to EOB CGA, provided cues for BUE scooting forward and maintaining hip flex precaution. Sit to stand x1 from bed, initially grasping BUE on FWW, pt pulling FWW over, provided cues for pushing off bed ModA to stand. In standing provided cues for knee ext and upright posture. Stand step pivot transfer to commode Deb, provided cues for FWW management and step sequencing . Stand to sit Deb, provided cues for RLE extended and tactile cues for decreased hip flexion, BUE support on arms of chair for slow eccentric control. Sit to stand from commode to adjust gown ModA with BUE support pushing form arms of chair. Pt was left on commode with spouse in room, RN notified, will return her to bed. Gait Assessment Comments Gait Comments Stand step pivot transfer to commode using FWW max A x 1 and max cues. See mobility comments. PT-Balance Assessment Sitting Balance and Reactions Static Sitting Balance Ability Good Dynamic Sitting Balance Ability Fair Standing Balance and Reactions Static Standing Balance Ability Fair Dynamic Standing Balance Ability Poor Device Used FWW Comments Other Balance Tests/Deviations/Treatment Pt sat EOB with BUE support, : standing balance with Deb. M5 PT-IP Objective Assessments Start: 09/30/22 13:19 Freq: NEEDED Status: Active Protocol: Document 09/30/22 11:03 AB (Rec: 09/30/22 13:35 AB [id number]) Orientation Orientation/Cognition Level of Alertness Confusional State Orientation Name,Situation Safety Awareness Decreased Safety Awareness Memory Description Short Term Impaired,Alf Impaired Gross Range of Motion Lower Extremity ROM Impairments pain limiting mobility on RLE Strength Lower Extremity Strength Assessment Right Impaired Hip 3-/5 Knee 3+/5 Muscle Tone Muscle Tone WNL Yes M6 PT-IP Treatment Start: 09/30/22 13:19 Freq: NEEDED Status: Active Protocol: Document 09/30/22 15:57 TS (Rec: 09/30/22 16:23 TS [id number]) Physical Therapy Treatment Education Education Provided Precautions,Weight Bearing Status,Post-Op Packet,Safety M7 PT-IP Assessment and Plan Start: 09/30/22 13:19 Freq: NEEDED Status: Active Protocol: Document 09/30/22 15:57 TS (Rec: 09/30/22 16:23 TS [id number]) PT Summary Assessment and Plan Potential Rehabilitation Potential Fair Status of Condition at Evaluation Evolving Summary Impairments Pain,ROM,Strength,Balance, Coordination,Sensation,Tone, Cognition,Bed Mobility, Transfers,Gait,Activity Tolerance Assessment Summary Educated pt and spouse on hip precautions, pt recalled 0/3, spouse recalled 3/3. Pt is progressing with her mobility and requiring decreased assist this session. She required MaxA x1 with HOB elevated for supine to sit, CGA for scooting to EOB, ModA x1 for sit to stands x2. She can follow single step instructions well and requires Max cueing for hip precautions throughout treatment due to confusion. PT is recommending SNF vs Home 15/12 assist and HHPT at this time depending on progression of pt while in hospital. Goals Bed Mobility Goal Minimal Assistance Transfer Goal Minimal Assistance,Front Wheeled Walker Gait Goal Minimal Assistance,Four Wheel Walker Gait Distance 100 Other Goals improve bed mobility, transfers and ambulation using FWW ~ 150 ft SBA up/down 2 steps using SPC+HYDRAULIC PLUMBER HELPER min A Days to Meet Goals 10 Frequency of Treatment Frequency Of Treatment Twice a Day Treatment Plan Physical Therapy Treatment Plan Bed Mobility Training,Transfer Training,Gait Training, Therapeutic Exercise,Balance Retraining,Post Op Education, Discharge Planning,Hot or Cold Pack,Neuromuscular Re-ed, Coordination Retraining,Manual Therapy Precautions Posterior Hip Precautions No Hip Flexion > 90 degrees,No Hip Internal Rotation,No Hip Adduction Weight Bearing Status Weight Bearing Status Weight Bear as Tolerated Allowed Weight Bearing Amount (enter % RLE WBAT or #) (%) Recommendations To Nursing Amount of Assist Needed 2 Person Assist Discharge Recommendations PT Discharge Recommendations SNF Rehab Transportation Needs at Discharge Wheelchair/Cabulance
--- NOTE | 2022-09-30 16:08 | OT.IPNOTE ---
Attempted to see pt for OT eval and pt on the BSC and nursing states will take care of her. To check on the pt tomorrow.
[2022-09-30] MEDS: PSYLLIUM HUSK 1 PACKET PO (16:30)
--- NOTE | 2022-09-30 16:54 | OT.IPNOTE ---
Pt is pain and too tired to get up. Able to get an ice pack for her hip and pt's nurse states just had pain medication earlier. Able to begin to go over ADL equipment needs with her , no charge.
[2022-09-30 19:46] LABS: Vitamin D 25 Hydroxy (D3) 42.3 ng/mL (30.0-100.0)
[2022-09-30 20:10] VITALS: BP 137/63; PULSE 81; RESP 19; TEMP 36.4; O2SAT 97
[2022-09-30] MEDS: TRAZODONE 50 MG TABLET 200 MG PO (20:34)
[2022-09-30] MEDS: SENNOSIDES 8.6 MG TABLET 17.2 MG PO (20:34)
[2022-10-01] MEDS: KETOROLAC 30 MG/ML VIAL 15 MG IV ×3 (00:03→13:22)
[2022-10-01] MEDS: OXYCODONE IR 10 MG TABLET PO ×2 (06:40→13:22)
[2022-10-01] MEDS: hydrOXYzine pamoate 25 MG CAPSULE PO ×2 (06:40→13:21)
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
[2022-10-01 07:45] VITALS: BP 114/58; PULSE 82; RESP 18; TEMP 36.8; O2SAT 93
[2022-10-01 08:51] LABS: Add Manual Diff / Slide Review NO; Basophils Absolute Auto 0 /uL (0-100); Basophils Percent Auto 0.4 % (0-2); Eosinophils Absolute Auto 0 /uL (0-450); Eosinophils Percent Auto 0.1 % (2-4); Hematocrit 29.6 % (36-46); Hemoglobin 10.3 g/dL (12.0-16.0); Lymphocytes Absolute Auto 1800 /uL (1100-4500); Lymphocytes Percent Auto 22.3 % (25-40); Mean Corpuscular HGB Conc 34.8 % (30-36); Mean Corpuscular Hemoglobin 34.8 PG (26-34); Mean Corpuscular Volume 100.2 fL (80-100); Monocytes Absolute Auto 500 /uL (0-900); Monocytes Percent Auto 6.1 % (3-14); Neutrophils Absolute Auto 5800 /uL (1500-7000); Neutrophils Percent Auto 71.1 % (50-75); Platelet Count 168 X10^3/uL (150-400); Red Blood Cell Count 2.96 X10^6/uL (4.0-5.2); Red Cell Distribution Width 14.9 % (11.6-14.8); White Blood Cell Count 8.2 X10^3/uL (4.5-11.0)
[2022-10-01 09:00] LABS: Magnesium 1.7 mg/dL (1.6-2.3)
[2022-10-01 09:01] LABS: BUN Creatinine Ratio 11.9 (6-22); Blood Urea Nitrogen 8 mg/dL (7-17); Calcium 8.4 mg/dL (8.4-10.2); Carbon Dioxide 33 mmol/L (22-32); Chloride 105 mmol/L (98-107); Estimated Glomerular Filt Rate > 60 mL/min (>60); Glucose 97 mg/dL (80-110); HEMOLYSIS < 15 (0-50); Potassium 3.5 mmol/L (3.4-5.1); Sodium 138 mmol/L (137-145)
[2022-10-01] MEDS: GABAPENTIN 600 MG TABLET 1800 MG PO (09:12)
[2022-10-01] MEDS: ACETAMINOPHEN 325 MG TABLET 650 MG PO (09:12)
[2022-10-01] MEDS: VENLAFAXINE ER 75 MG CAP 225 MG PO (09:13)
[2022-10-01] MEDS: OXYCODONE ER 20 MG TAB PO (09:13)
[2022-10-01] MEDS: CALCIUM CARBONATE 500 MG TAB PO (09:13)
[2022-10-01] MEDS: DULOXETINE 30 MG CAPSULE PO (09:13)
[2022-10-01] MEDS: ATORVASTATIN 20 MG TABLET 10 MG PO (09:13)
[2022-10-01] MEDS: CHOLECALCIFEROL (VITAMIN D3) 1,000 UNIT TABLET 2000 UNIT PO (09:13)
[2022-10-01] MEDS: NICOTINE 14 PATCH 14 MG TOP (09:14)
[2022-10-01] MEDS: CHOLESTYRAMINE/ASPARTAME 4 GM PACK 2 GM PO (09:14)
[2022-10-01] MEDS: PSYLLIUM HUSK 1 PACKET PO (09:14)
[2022-10-01] MEDS: ENOXAPARIN 40 MG/0.4 ML SYRINGE SUBCUT (09:15)
--- NOTE | 2022-10-01 09:34 | PT.IPTN ---
Current Diagnoses Age-related osteoporosis with current pathological fracture, unspecified femur, initial encounter for fracture (09/29/22) Fracture of unspecified part of neck of right femur, initial encounter for closed fracture (09/29/22) Fracture of unspecified part of neck of unspecified femur, initial encounter for closed fracture (09/29/22) Presence of unspecified artificial hip joint (09/29/22) Surgery Performed Operation Date: 09/29/22 16:15 Actual Procedures p Right Hip Evin Arthroplasty(Right) - Ebony Finn MD Physical Therapy Treatment Note M2 PT-IP Current Condition Start: 09/30/22 13:19 Freq: NEEDED Status: Active Protocol: Document 09/30/22 11:03 AB (Rec: 09/30/22 13:35 AB [id number]) Physical Therapy Current Condition Current Condition Evaluation Date 09/30/22 Treatment Diagnosis s/p falls; R femoral neck fx s /p hemiarthroplasty; difficulty in walking Onset Date 09/29/22 M3 PT-IP Subjective Start: 09/30/22 13:19 Freq: NEEDED Status: Active Protocol: Document 10/01/22 10:31 TS (Rec: 10/01/22 10:46 TS [email or web address]) Subjective Physical Therapy Visit Type Type Treatment Note Visit Start Time 09:34 Visit Stop Time 10:05 Total Visit Minutes 31 Notes Caregiver training with spouse . Will need FWW dispensed before d/c. Physical Therapy Visit Comments Patient Comments Pt reports feeling better, having less pain, would like to go home. Therapy Pain Assessment Pain When Pain Assessed At Rest Pain Present Pain Present Pain Reported M4 PT-IP Mobility and Gait Start: 09/30/22 13:19 Freq: NEEDED Status: Active Protocol: Document 10/01/22 10:31 TS (Rec: 10/01/22 10:46 TS [id number]) PT-Bed Mobility Assessment Supine to Sit Supine to Sit Contact Guard Assistance,1 Person Assistance Scooting Scooting to Edge of Bed Contact Guard Assistance PT-Transfer Assessment Sit to and From Stand Sit to and from Stand Contact Guard Assistance,1 Person Assistance,Use of Upper Extremities Equipment Transfer Assistive Device Gait Belt,Front Wheeled Walker Orthotic/Prosthetic Devices or Brace: No Comments Mobility Comments Pt found resting in bed, agreeable to PT. Supine to sit CGA for uprighting trunk, no LE assist, pt slightly confused with cues from therapist for BUE support pushing from bed. Scooted to EOB CGA with cues for BUE support and decreased hip flexion. Sit to stand x1 CGA, spouse provided cues for BUE support pushing from bed, pt tipping FWW with UEs on FWW. She ambulated ~300' CGA with cautious step to gait, no signs of buckling or LOB. Stairs x3 CGA, provided cues for step sequencing. Stand to sit in chair CGA, demonstrated good carryover of sequencing. Pt was left in chair with call light nearby, spouse in room, RN notified. Gait Assessment Gait Gait Assistance Required: Contact Guard Assist Distance (Feet) 300 Able to Maintain Weight Bearing Status Yes During Gait Assistive Devices Assistive Device Gait Belt,Front Wheeled Walker Gait Deviations General Gait Pattern Antalgic,Decreased Stride Length,Decreased Feet Clearance,Narrow Based Gait, Step-to Gait Factors Limiting Gait Function Factors Limiting Gait Function Decreased Strength,Limited Range of Motion,Pain,Poor Balance,Poor Safety Awareness Comments Gait Comments See mobility comments. Stair Climbing Assessment Evaluation Level of Assist On Stairs Contact Guard Assistance,1 Person Assistance Devices Stair Climbing Assistive Devices Left Railing,Right Railing Technique/Endurance Stair Climbing Direction Ascend and Descend Stair Climbing Technique Step to Step Number of Steps Climbed 3 Comments Stair Climbing Comments See mobility comments. PT-Balance Assessment Sitting Balance and Reactions Static Sitting Balance Ability Good Dynamic Sitting Balance Ability Fair Standing Balance and Reactions Static Standing Balance Ability Good Dynamic Standing Balance Ability Fair Device Used FWW M5 PT-IP Objective Assessments Start: 09/30/22 13:19 Freq: NEEDED Status: Active Protocol: Document 09/30/22 11:03 AB (Rec: 09/30/22 13:35 AB [id number]) Orientation Orientation/Cognition Level of Alertness Confusional State Orientation Name,Situation Safety Awareness Decreased Safety Awareness Memory Description Short Term Impaired,Paving Stone Installer Impaired Gross Range of Motion Lower Extremity ROM Impairments pain limiting mobility on RLE Strength Lower Extremity Strength Assessment Right Impaired Hip 3-/5 Knee 3+/5 Muscle Tone Muscle Tone WNL Yes M6 PT-IP Treatment Start: 09/30/22 13:19 Freq: NEEDED Status: Active Protocol: Document 10/01/22 10:31 TS (Rec: 10/01/22 10:46 TS [id number]) Physical Therapy Treatment Education Education Provided Precautions,Weight Bearing Status,Post-Op Packet,Safety M7 PT-IP Assessment and Plan Start: 09/30/22 13:19 Freq: NEEDED Status: Active Protocol: Document 10/01/22 10:31 TS (Rec: 10/01/22 10:46 TS [id number]) PT Summary Assessment and Plan Potential Rehabilitation Potential Good Status of Condition at Evaluation Evolving Summary Impairments Pain,ROM,Strength,Balance, Coordination,Sensation,Tone, Cognition,Bed Mobility, Transfers,Gait,Activity Tolerance Assessment Summary Pt is progressing well with her mobility this session. She requires CGA for bed mobility and sit to stands, requires cues for hip precautions. She increased her ambulation distance to ~300' in hallway CGA, no c/o of fatigue or buckling or LOB. PT recommends home with 24/7 assist and HHPT. Pt has very supportive spouse that works well with her, providing cueing for mobility and for hip precautions. She will require a FWW dispensed before D/C today. Goals Bed Mobility Goal Minimal Assistance Transfer Goal Minimal Assistance,Front Wheeled Walker Gait Goal Minimal Assistance,Four Wheel Walker Gait Distance 100 Other Goals improve bed mobility, transfers and ambulation using FWW ~ 150 ft SBA up/down 2 steps using SPC+PHILOSOPHY AND RELIGION INSTRUCTOR min A Days to Meet Goals 10 Frequency of Treatment Frequency Of Treatment Twice a Day Treatment Plan Physical Therapy Treatment Plan Bed Mobility Training,Transfer Training,Gait Training, Therapeutic Exercise,Balance Retraining,Post Op Education, Discharge Planning,Hot or Cold Pack,Neuromuscular Re-ed, Coordination Retraining,Manual Therapy Precautions Posterior Hip Precautions No Hip Flexion > 90 degrees,No Hip Internal Rotation,No Hip Adduction Weight Bearing Status Weight Bearing Status Weight Bear as Tolerated Allowed Weight Bearing Amount (enter % RLE WBAT or #) (%) Recommendations To Nursing Amount of Assist Needed 1 Person Assist Discharge Recommendations PT Discharge Recommendations Home with 24/7 Assist Available,Home Health Transportation Needs at Discharge Private Vehicle
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
[2022-10-01] MEDS: POTASSIUM CHLORIDE 20 MEQ TAB PO (13:21)
--- NOTE | 2022-10-01 14:53 | PC.NURSE ---
Pt discharged home at 1445, escorted off floor in wheelchair accompanied by family members and hospital staff. IV removed, discharge teaching provided including follow up appointments, new medication education and worsening symptoms. Questions answered. Patient left floor with all belongings.
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
--- NOTE | 2022-10-01 15:54 | CM.DPNOTE ---
DC Note Discharge home w/family today, patient pleased with this outcome. Cleared by [facility] for this plan. Brochure for [facility] provided Updated [facility] that patient discharged home today, Boo at [facility] confirms patient will receive a call tomorrow AM re scheduling the first clinician's visit JW
== END 2022-10-01 14:55 | disposition home health service (06) | DRG 522 ==
LOC: ED 12:10 → AC 12:39
PROVIDERS: Orthopaedic Surgery Foot and Ankle Surgery; Student in an Organized Health Care Education/Training Program; Admitting Provider Neuromusculoskeletal Medicine, Sports Medicine; Emergency Provider Emergency Medicine; PCP Family Medicine; Referring Provider Emergency Medicine; Visit Provider Neuromusculoskeletal Medicine, Sports Medicine
PROC: 0SRR0JZ Replacement of Right Hip Joint, Femoral Surface with Synthetic Substitute, Open Approach (ICD-10-PCS; CPT 27125; principal; 2022-09-29 16:15)
DX: M80.051A Age-related osteoporosis with current pathological fracture, right femur, initial encounter for fracture (principal); J44.9 Chronic obstructive pulmonary disease, unspecified; F32.A Depression, unspecified; F41.9 Anxiety disorder, unspecified; G89.29 Other chronic pain; G89.18 Other acute postprocedural pain; E78.5 Hyperlipidemia, unspecified; F17.200 Nicotine dependence, unspecified, uncomplicated; Z20.822 Contact with and (suspected) exposure to COVID-19
CPT/HCPCS: 36415; 71045; 72170; 73502; 80048; 80053; 82306; 83735; 85014; 85018; 85025; 87635; 96374; 96375; 96376; 97116; 97162; 97165; 97530; 97535; 99284; C9803; J0171; J0330; J0690; J1100; J1170; J1650; J1885; J2060; J2270; J2405; J2704; J3010; J3410

== ENCOUNTER → 2022-10-21 14:16 | Outpatient (CLI) | payer MEDICARE, OTHER, SELFPAY ==
[2022-10-10 15:06] VITALS: BMI 21.7
--- NOTE | 2022-10-21 14:17 | DI.MG.S_ITS ---
BILATERAL DIGITAL SCREENING MAMMOGRAM 3D/2D WITH CAD: 10/21/2022 CLINICAL: Routine screening. Family history of breast cancer. Comparison is made to exams dated: 06/23/2019 mammogram - [facility], 09/03/2017 mammogram, and 08/28/2016 mammogram - [facility]. There are scattered areas of fibroglandular density in both breasts (category b / 25%-50% glandular tissue). Current study was also evaluated with a Computer Aided Detection (CAD) system. No significant masses, calcifications, or other findings are seen in either breast. There has been no significant interval change. IMPRESSION: NEGATIVE There is no mammographic evidence of malignancy. A 1 year screening mammogram is recommended. Based on the Tyrer Cuzick model (a risk assessment model) the patient's lifetime risk is 4.2% and her 10 year risk is 2.5%. According to the ACR, ACS, and NCCN guidelines, an annual breast MRI exam along with mammogram is recommended if the patient's lifetime risk is 20% or greater. This exam was interpreted at Station ID: [id number]. NOTE: For mammograms, a report in lay terms will be sent to the patient. Approximately 15% of breast malignancies will not be visualized mammographically. In the management of a palpable breast mass, a negative mammogram must not discourage biopsy of a clinically suspicious lesion. Electronically Signed By: David null/lizbeth:10/21/2022 16:06:49 letter sent: Normal Exam ACR BI-RADS Category 1: Negative 3341F
--- NOTE | 2022-10-21 14:17 | DI.RAD.S_ITS ---
Bone Density Report Name: STEVEN JEAN Age: 67 Sex: Female Ethnicity: White Date of : 1955 Indication: postmenopausal; screening for osteoporosis; Referring Provider: USHA RODRÍGUEZ Study: Bone densitometry was performed. Exam Date: October 21, 2022 Accession number: [id number] Bone Density: Region BMD T-score Z-score Classification AP Spine(L1, L3, L4) 1.049 0.0 2.1 Normal Femoral Neck (Left) 0.564 -2.6 -0.8 Osteoporosis Total Hip (Left) 0.677 -2.2 -0.7 Osteopenia Total Forearm (Left) 0.494 -1.6 0.4 Osteopenia 1/3 Forearm (Left) 0.675 -0.3 1.7 Normal UD Forearm (Left) 0.337 -1.8 -0.4 Osteopenia World Health Organization criteria for BMD impression classify patients as: Normal (T-score at or above -1.0), Osteopenia (T-score between -1.0 and -2.5), or Osteoporosis (T-score at or below -2.5). 10-year Fracture Risk: FRAX not reported because: Some T-score for Spine Total or Hip Total or Femoral Neck at or below -2.5 Impression: The patient has osteoporosis, based on the Left Femoral Neck T-score. Discussion: INCREASED RISK OF FRACTURE. BONE DENSITY IS UNDESIRABLY LOW AT ONE OR MORE SKELETAL SITES, CONSISTENT WITH POSTMENOPAUSAL OSTEOPOROSIS. This patient's lowest T-score meets the World Health Organization's (WHO) criteria for osteoporosis at one or more sites (T-score -2.5 or below). In untreated patients, the risk of osteoporotic fracture increases approximately two-fold for each 1.0 SD decrease in T-score. Low bone density is not the only risk factor for fracture; also consider factors such as patient's age, frailty or poor health, risk of falling, risk of injury, previous osteoporotic fracture, family history of osteoporosis, cigarette smoking, low body weight, etc. Not everyone with low bone mineral density has osteoporosis; osteomalacia and other metabolic bone disorders should also be considered. Patients who have osteoporosis should be evaluated for specific diseases and conditions (secondary causes) that may cause or contribute to bone loss. The [place] [employer]ocrinologists (AACE) and National Osteoporosis Foundation (NOF) recommend pharmacologic intervention for all postmenopausal women whose T-score is in this range. The patient should follow a healthful lifestyle (good nutrition with adequate calcium and vitamin D, and appropriate weight-bearing exercise). Follow-Up: Consider a repeat BMD and Vertebral Fracture Assessment (VFA) exam in 2 years or sooner if medically necessary, to reassess this patient's status. Reported by: FABIO PERALES M.D. on 10/21/2022 2:56:00 PM.
== END ==
PROVIDERS: PCP Family Medicine; Referring Provider Family Medicine; Visit Provider Family Medicine
DX: Z12.31 Encounter for screening mammogram for malignant neoplasm of breast (principal); Z13.820 Encounter for screening for osteoporosis; Z80.3 Family history of malignant neoplasm of breast; M81.0 Age-related osteoporosis without current pathological fracture
CPT/HCPCS: 77063; 77067; 77080; 77081

== ENCOUNTER → 2023-04-09 13:46 | Outpatient (CLI) | payer MEDICARE, OTHER, SELFPAY ==
[2022-10-10 15:06] VITALS: BMI 21.7
[2023-04-09 15:14] LABS: Add Manual Diff / Slide Review NO; Basophils Absolute Auto 100 /uL (0-100); Basophils Percent Auto 0.6 % (0-2); Eosinophils Absolute Auto 100 /uL (0-450); Hematocrit 40.9 % (36-46); Lymphocytes Absolute Auto 2900 /uL (1100-4500); Lymphocytes Percent Auto 33.1 % (25-40); Mean Corpuscular HGB Conc 34.3 % (30-36); Mean Corpuscular Hemoglobin 31.6 PG (26-34); Mean Corpuscular Volume 92.1 fL (80-100); Monocytes Absolute Auto 600 /uL (0-900); Monocytes Percent Auto 6.5 % (3-14); Neutrophils Absolute Auto 5200 /uL (1500-7000); Neutrophils Percent Auto 58.8 % (50-75); Platelet Count 289 X10^3/uL (150-400); Red Blood Cell Count 4.44 X10^6/uL (4.0-5.2); Red Cell Distribution Width 13.8 % (11.6-14.8); White Blood Cell Count 8.9 X10^3/uL (4.5-11.0)
[2023-04-09 15:26] LABS: Prothrombin Time 11.7 SECONDS (10.1-12.7)
[2023-04-09 15:28] LABS: PTT Partial Thromboplastin Tim 28 SECONDS (26-36)
[2023-04-09 15:38] LABS: BUN Creatinine Ratio 21.3 (6-22); Blood Urea Nitrogen 19 mg/dL (7-17); Calcium 9.8 mg/dL (8.4-10.2); Carbon Dioxide 27 mmol/L (22-32); Chloride 103 mmol/L (98-107); Estimated Glomerular Filt Rate > 60 mL/min (>60); Glucose 111 mg/dL (80-110); HEMOLYSIS < 15 (0-50); Potassium 3.8 mmol/L (3.4-5.1); Sodium 140 mmol/L (137-145)
== END ==
PROVIDERS: PCP Family Medicine; Referring Provider Family Medicine; Visit Provider Family Medicine
DX: Z01.818 Encounter for other preprocedural examination (principal); Z51.81 Encounter for therapeutic drug level monitoring; Z01.812 Encounter for preprocedural laboratory examination; J44.9 Chronic obstructive pulmonary disease, unspecified; F17.210 Nicotine dependence, cigarettes, uncomplicated
CPT/HCPCS: 36415; 80048; 85025; 85610; 85730; 93005; 93010; 94060; 94729

== ENCOUNTER 2023-10-06 13:32 | Outpatient (RCR) | payer MEDICARE, SELFPAY ==
[2022-10-10 15:06] VITALS: BMI 21.7
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
== END 2024-06-02 10:28 | disposition home or self-care (01) ==
LOC: PHYS 13:32
PROVIDERS: Family Provider Family Medicine; PCP Family Medicine; Referring Provider Family Medicine; Visit Provider Family Medicine
DX: M25.559 Pain in unspecified hip (principal); G89.29 Other chronic pain; R29.898 Other symptoms and signs involving the musculoskeletal system
CPT/HCPCS: 97162; 97535

== ENCOUNTER → 2024-07-12 11:18 | Outpatient (CLI) | payer MEDICARE, SELFPAY ==
[2022-10-10 15:06] VITALS: BMI 21.7
--- NOTE | 2024-07-12 11:20 | DI.CT.S_ITS ---
PROCEDURE: CT HEAD/BRAIN WO CON INDICATIONS: persistent headache TECHNIQUE: Noncontrast 4.5 mm thick angled axial sections acquired from the foramen magnum to the vertex, with coronal and sagittal reformats. For radiation dose reduction, the following was used: automated exposure control, adjustment of mA and/or kV according to patient size. COMPARISON: [facility], CT, CT HEAD/BRAIN WO CON, 08/30/2021, 16:09. FINDINGS: Image quality: Diagnostic. CSF spaces: Basal cisterns are patent. No extra-axial fluid collections. The ventricles are symmetric in size and shape. Brain: No intracranial bleeds or masses. There is cerebral volume loss for age, with resultant ventricular and sulcal prominence. There are periventricular and deep white matter chronic small vessel ischemic changes. There is intracranial internal carotid artery atherosclerosis. Skull and face: Calvarium and visualized facial bones appear intact, without suspicious lesions. Sinuses: Visualized sinuses and mastoids are clear. IMPRESSION: No cause for patient's symptoms is identified. No acute intracranial pathology. Age-related global volume loss and chronic microvascular ischemic changes are present. Dictated by: Aaron Stevens M.D. on 07/12/2024 at 11:53 Approved by: Aaron Stevens M.D. on 07/12/2024 at 11:54
--- NOTE | 2024-07-12 11:20 | DI.MG.S_ITS ---
BILATERAL DIGITAL DIAGNOSTIC MAMMOGRAM 3D/2D: 07/12/2024 CLINICAL: Breast pain. Comparison is made to exams dated: 10/21/2022 mammogram - , 06/23/2019 mammogram - [facility], and 09/03/2017 mammogram - [facility]. There are scattered areas of fibroglandular density (category b / 25%-50% glandular tissue). No significant masses, calcifications, or other findings are seen in either breast. IMPRESSION: INCOMPLETE: NEED ADDITIONAL IMAGING EVALUATION No mammographic evidence of malignancy. A targeted ultrasound is recommended and will immediately follow. Based on the Tyrer Cuzick model (a risk assessment model) the patient's lifetime risk is 3.8% and her 10 year risk is 2.6%. According to the ACR, ACS, and NCCN guidelines, an annual breast MRI exam along with mammogram is recommended if the patient's lifetime risk is 20% or greater. This exam was interpreted at Station ID: [id number]. NOTE: For mammograms, a report in lay terms will be sent to the patient. Approximately 15% of breast malignancies will not be visualized mammographically. In the management of a palpable breast mass, a negative mammogram must not discourage biopsy of a clinically suspicious lesion. Electronically Signed By: David Marcus M.D. [facility] [place]/:07/12/2024 12:44:54 letter sent: Additional Imaging Needed ACR BI-RADS Category 0: Incomplete: Need Additional Imaging Evaluation
--- NOTE | 2024-07-12 11:20 | DI.US.S_ITS ---
LIMITED ULTRASOUND OF RIGHT BREAST: 07/12/2024 CLINICAL: Intermittent pain in right breast. Comparison is made to exams dated: 07/12/2024 mammogram and 10/21/2022 mammogram - [facility]. Real-time ultrasound of the right breast 10 o'clock region was performed. Lopes scale images of the real-time examination were reviewed. No significant abnormalities were seen sonographically in the right breast. IMPRESSION: NEGATIVE There is no sonographic evidence of malignancy. Exam findings were conveyed to the patient. Patient is advised to monitor for significant change. Clinical follow-up as needed. A 1 year screening mammogram is recommended. This exam was interpreted at Station ID: [id number]. Electronically Signed By: David Marcus M.D. [facility]/:07/12/2024 12:46:28 letter sent: Normal Exam ACR BI-RADS Category 1: Negative
[2024-07-12 13:27] LABS: Hematocrit 45.6 % (36-46); Hemoglobin 15.6 g/dL (12.0-16.0); Mean Corpuscular HGB Conc 34.1 % (30-36); Mean Corpuscular Volume 90.8 fL (80-100); Platelet Count 292 X10^3/uL (150-400); Red Blood Cell Count 5.03 X10^6/uL (4.0-5.2); Red Cell Distribution Width 12.6 % (11.6-14.8); White Blood Cell Count 9.6 X10^3/uL (4.5-11.0)
[2024-07-12 14:07] LABS: Alanine Aminotransferase 20 IU/L (<35); Albumin 4.9 g/dL (3.5-5.0); Alkaline Phosphatase 88 U/L (38-126); Aspartate Aminotransferase 33 IU/L (14-36); BUN Creatinine Ratio 15.1 (6-22); Bilirubin Total 0.5 mg/dL (0.2-1.3); Blood Urea Nitrogen 14 mg/dL (7-17); Calcium 9.9 mg/dL (8.4-10.2); Carbon Dioxide 28 mmol/L (22-32); Chloride 103 mmol/L (98-107); Cholesterol 240 mg/dL (140-199); Estimated Glomerular Filt Rate > 60 mL/min (>60); Globulin 2.4 g/dL (1.7-4.1); Glucose 108 mg/dL (80-110); HDL Cholesterol 60 mg/dL (40-60); HEMOLYSIS < 15 (0-50); LDL Cholesterol Calculated 147 mg/dL (<100); Potassium 4.8 mmol/L (3.4-5.1); Sodium 140 mmol/L (137-145); Total Protein 7.3 g/dL (6.3-8.2); Triglycerides 165 mg/dL (35-150)
[2024-07-12 14:35] LABS: TSH w/ Reflex to FT4 0.15 uIU/mL (0.47-4.68)
[2024-07-12 14:52] LABS: Hep C Virus Ab w/Reflex Quant NEGATIVE s/c (NEGATIVE)
[2024-07-12 15:08] LABS: Free T4, Direct Thyroxine 1.11 ng/dL (0.78-2.19)
== END ==
PROVIDERS: Family Provider Family Medicine; PCP Family Medicine; Referring Provider Family Medicine; Visit Provider Family Medicine
DX: R92.2 Inconclusive mammogram (principal); N64.4 Mastodynia; R51.9 Headache, unspecified; E78.5 Hyperlipidemia, unspecified; J44.9 Chronic obstructive pulmonary disease, unspecified
CPT/HCPCS: 36415; 70450; 76642; 77066; 80053; 80061; 84439; 84443; 85027; 86803; G0279

== ENCOUNTER → 2024-08-17 15:33 | Outpatient (CLI) | payer MEDICARE, SELFPAY ==
[2022-10-10 15:06] VITALS: BMI 21.7
[2024-08-17 16:01] LABS: Add Manual Diff / Slide Review NO; Basophils Absolute Auto 0 /uL (0-100); Basophils Percent Auto 0.4 % (0-2); Eosinophils Absolute Auto 100 /uL (0-450); Eosinophils Percent Auto 0.8 % (2-4); Hematocrit 45.5 % (36-46); Hemoglobin 15.3 g/dL (12.0-16.0); Lymphocytes Absolute Auto 2900 /uL (1100-4500); Lymphocytes Percent Auto 36.9 % (25-40); Mean Corpuscular HGB Conc 33.7 % (30-36); Mean Corpuscular Hemoglobin 30.3 PG (26-34); Monocytes Absolute Auto 500 /uL (0-900); Monocytes Percent Auto 6.5 % (3-14); Neutrophils Absolute Auto 4400 /uL (1500-7000); Neutrophils Percent Auto 55.4 % (50-75); Platelet Count 252 X10^3/uL (150-400); Red Blood Cell Count 5.05 X10^6/uL (4.0-5.2); Red Cell Distribution Width 12.5 % (11.6-14.8)
[2024-08-17 16:22] LABS: Alanine Aminotransferase 21 IU/L (<35); Albumin 4.7 g/dL (3.5-5.0); Alkaline Phosphatase 80 U/L (38-126); Aspartate Aminotransferase 31 IU/L (14-36); BUN Creatinine Ratio 13.6 (6-22); Bilirubin Total 0.5 mg/dL (0.2-1.3); Blood Urea Nitrogen 14 mg/dL (7-17); Calcium 9.8 mg/dL (8.4-10.2); Carbon Dioxide 28 mmol/L (22-32); Chloride 101 mmol/L (98-107); Cholesterol 197 mg/dL (140-199); Estimated Glomerular Filt Rate 58 mL/min (>60); Globulin 2.4 g/dL (1.7-4.1); Glucose 121 mg/dL (80-110); HDL Cholesterol 58 mg/dL (40-60); HEMOLYSIS < 15 (0-50); LDL Cholesterol Calculated 107 mg/dL (<100); Potassium 3.8 mmol/L (3.4-5.1); Sodium 139 mmol/L (137-145); Total Protein 7.1 g/dL (6.3-8.2); Triglycerides 161 mg/dL (35-150)
== END ==
LOC: LAB 15:34
PROVIDERS: Family Provider Family Medicine; PCP Family Medicine; Referring Provider Family Medicine; Visit Provider Family Medicine
DX: R10.13 Epigastric pain (principal); F41.9 Anxiety disorder, unspecified
CPT/HCPCS: 36415; 80053; 80061; 85025

== ENCOUNTER → 2024-08-18 12:48 | Outpatient (CLI) | payer MEDICARE, SELFPAY ==
[2022-10-10 15:06] VITALS: BMI 21.7
--- NOTE | 2024-08-18 12:50 | DI.CT.S_ITS ---
PROCEDURE: CT ABDOMEN PELVIS W CON INDICATIONS: epigastric, generalized abd pain TECHNIQUE: After the administration of intravenous contrast, axial sections acquired from the lung bases to the pubic symphysis. Coronal and sagittal reformats were performed. For radiation dose reduction, the following was used: automated exposure control, adjustment of mA and/or kV according to patient size. COMPARISON: No prior CT abdomen/pelvis available for comparison FINDINGS: Image quality: Diagnostic. Some images are limited by beam hardening artifacts. Moderate wall thickening of the stomach, measures up to 2.4 cm thickness greater curvature of the gastric mid body, more than expected for artifact from partial nondistention and gastritis infiltrative process which rarely may include lymphoma or neoplasm or other cause could be considered. Moderate amount of stool throughout the colon in a pattern of constipation predominantly the transverse, descending and sigmoid colon. Mild nonspecific wall thickening of the distal rectum/anus commonly artifact from partial nondistention although hemorrhoids, proctitis or other anal rectal lesion could be considered. Moderate calcifications of the aorta, iliac vessels without CT evidence of aneurysm or dissection. Mildly prominent bilateral renal pelves commonly normal variant extrarenal pelves without CT evidence of hydroureter or renal, ureteral or bladder calculi. Surgical clips status post cholecystectomy. Mild diffuse low-attenuation of the liver commonly hepatic steatosis. The liver measures approximately 15 cm in CC dimension of the right lobe within normal limits in size. Several low-attenuation round lesions in both lobes of the liver the largest in the right lobe inferiorly measuring 8 mm commonly hepatic cysts, too small to characterize. Appendix is not definitively identified and may be surgically absent. No CT evidence of dilated tubular structure in the right lower quadrant to suggest appendicitis. Left posterior subcutaneous battery pack with spinal stimulator leads entering posteriorly at the level of approximately T12-L1. Mild calcifications of the coronary arteries and descending aorta. No pneumothorax, no pleural effusion, lobar consolidation in limited images of the lung bases. Right hip arthroplasty without CT evidence of complication. Associated beam hardening artifacts limits evaluation of the pelvis. ABDOMEN: Biliary ducts: No biliary dilation. Pancreas: No ductal dilation. Spleen: Size is within normal limits. Adrenal Glands: No adrenal nodules. Small Bowel: Normal colonic caliber, without significant wall thickening, no obstruction. Peritoneum: No abnormal intraperitoneal fluid. No free air. Ventral Wall: No significant ventral hernia. Abdominal Nodes: No retroperitoneal or mesenteric adenopathy by size criteria. Vessels: Aorta and inferior vena cava are normal in size. PELVIS: Pelvic Organs: Unremarkable. Bladder: No bladder wall thickening, accounting for underdistention. IMPRESSION: Moderate wall thickening of the stomach as discussed above possible gastritis which may account for patient's reported epigastric pain. Follow-up suggested. If indicated, if symptoms persist or worsen, correlation with direct visualization endoscopy could be considered. Mild hepatic steatosis. Other chronic findings as above Dictated by: Ishmael Gabriel M.D. on 08/18/2024 at 15:19 Approved by: Ishmael Gabriel M.D. on 08/18/2024 at 15:37
== END ==
PROVIDERS: Family Provider Family Medicine; PCP Family Medicine; Referring Provider Family Medicine; Visit Provider Family Medicine
DX: K76.0 Fatty (change of) liver, not elsewhere classified (principal); I70.0 Atherosclerosis of aorta; R10.13 Epigastric pain; I25.10 Atherosclerotic heart disease of native coronary artery without angina pectoris; Z90.49 Acquired absence of other specified parts of digestive tract
CPT/HCPCS: 74177; Q9967

== ENCOUNTER 2024-11-14 07:55 | Day surgery (SDC) | payer MEDICARE, SELFPAY ==
[2022-10-10 15:06] VITALS: BMI 21.7
--- NOTE | 2024-11-14 | PATH_ITS ---
[facility] Accession Number: [id number] No. of containers..01 Tissue . 01 Material submitted: . stomach - STOMACH BIOPSY . 01 Diagnosis: STOMACH, BIOPSY: Gastric antral-type mucosa with mild reactive gastropathy. Gastric body-type mucosa with no diagnostic alteration. No Helicobacter organisms are identified. MRV 11/21/2024 1248 Local . 01 Electronically signed: . Norberto Benz MD, Dermatopathologist NPI- [id number] . 01 Gross description: . STOMACH BIOPSY: Received in formalin are 3 fragment(s) of quarles, soft tissue measuring 0.2 x 0.2 x 0.1 cm to 0.4 x 0.3 x 0.2 cm submitted entirely in 1 cassette(s) /TRE 11/16/2024 1847 Local . 01 Pathologist provided ICD-10: K31.9, R93.89 . 01 CPT . 163968 Specimen Comment: A courtesy copy of this report has been sent to [phone] Performed at: [address] [facility] [address], [place], [place] [id number] MD Yusuf Morataya MD Phone: [phone]
[2024-11-14 08:18] VITALS: BP 125/83; PULSE 112; RESP 15; TEMP 36.4; O2SAT 97
[2024-11-14] MEDS: LACTATED RINGERS 1,000 ML 42 ML IV (08:23)
--- NOTE | 2024-11-14 08:33 | PM.PREOP ---
Pre-operative Note COVID-19 COVID-19 status: Not tested Interval Note History & Physical reviewed/Exam performed by Physician: Yes Changes to H&P: No ASA Class (for procedural sedation): II
--- NOTE | 2024-11-14 08:33 | PM.OP.ENDO ---
Operative Date/Time/Diagnoses Date of procedure: 11/14/24 Time of procedure: 09:29 Pre-op diagnosis: See indication and findings Post-op diagnosis: same Procedure & Clinicians Same procedure(s) as scheduled: Yes Surgeon: Connor Rodriguez Procedure Notes SCOAP/Timeout: EGD Procedure in detail: After informed consent was obtained the patient was placed in left lateral decubitus position. The video upper scope was placed into the oropharynx and with the patient's help swallowed into the esophagus. The esophagus stomach and duodenal were carefully examined. On withdrawal, retroflexed view the GE junction was performed. The scope was removed. The patient tolerated procedure well. Blood loss none complications none Sedation mac Findings 1. Normal esophagus 2. Normal GE junction 3. Patchy gastric erythema biopsy to rule out Helicobacter. No clear mechanical lesion. 4. Normal duodenal bulb and sweep Will be in touch regarding the biopsies. Would not change medications at this time
--- NOTE | 2024-11-14 09:13 | SUR.OPER ---
Scope 655
[2024-11-14 09:34] VITALS: BP 94/56; PULSE 78; RESP 10; TEMP 36.3; O2SAT 92
[2024-11-14 09:37] VITALS: BP 92/57; PULSE 77; RESP 20; O2SAT 91
[2024-11-14 09:42] VITALS: BP 99/62; PULSE 72; RESP 14; TEMP 36.3; O2SAT 92
[2024-11-14 09:47] VITALS: BP 97/61; PULSE 80; RESP 12; TEMP 36.3; O2SAT 93
== END 2024-11-14 09:56 | disposition home or self-care (01) ==
PROVIDERS: Family Provider Family Medicine; PCP Family Medicine; Referring Provider Family Medicine; Visit Provider Internal Medicine Gastroenterology
PROC: 0DJ08ZZ Inspection of Upper Intestinal Tract, Via Natural or Artificial Opening Endoscopic (ICD-10-PCS; CPT 43239; principal; 2024-11-14 09:00)
DX: K31.9 Disease of stomach and duodenum, unspecified (principal); R10.13 Epigastric pain; R93.89 Abnormal findings on diagnostic imaging of other specified body structures; E78.5 Hyperlipidemia, unspecified; M79.7 Fibromyalgia; F17.210 Nicotine dependence, cigarettes, uncomplicated
CPT/HCPCS: 43239; J2704